=== PATIENT | male | born 1945 | race Caucasian/White ===

== ENCOUNTER → 2017-11-21 | Outpatient (CLI) | payer BC ==
[~2017-11-21] MED LIST: HYDROCHLOROTHIA25 MG PO; LISINOPRIL40 MG PO; TOPROL XL PO
--- NOTE | 2017-11-21 14:19 | Diagnostic Imaging Report ---
PROCEDURE:ABDOMEN-1VIEW (KUB) TECHNIQUE:Supine AP abdomen totaling 2 radiographs are INDICATION:Kidney stones COMPARISON:Patients [facility], DX, ABDOMEN-1VIEW (KUB), 06/04/2017, 11:33. FINDINGS: See conclusion. CONCLUSION: 1. Stable 0.6 cm left inferior pole nephrolithiasis. 2. No additional conspicuous calcifications over the kidneys or ureters. 3. Stable pelvic phleboliths. 4. Normal bowel gas pattern. 5. Degenerative disc disease throughout the thoracolumbar spine. Dictated by: Paresh Singh M.D. on 11/21/2017 at 14:28 Electronically approved by: Paresh Singh M.D. on 11/21/2017 at 14:28
== END ==
LOC: RAD 13:21
PROVIDERS: ATTEND Urology
DX: N20.0 Calculus of kidney (principal)
CPT/HCPCS: 74000

== ENCOUNTER → 2018-03-20 | Outpatient (CLI) | payer BC ==
--- NOTE | 2018-03-20 14:38 | Diagnostic Imaging Report ---
PROCEDURE:X-RAY ABDOMEN - KUB COMPARISON:KUB 11/11/2017. INDICATIONS:RENAL STONE FOLLOW UP. DENIES COMPLAINTS FINDINGS: There is a non-obstructed bowel-gas pattern. There is a 0.5 cm left renal stones unchanged.. There are no acute osseous abnormalities. Degenerative changes in the thoracolumbar spine. The lung bases are clear. CONCLUSION: Stable 0.5 cm left renal stone. Dictated by: Dixon Molina M.D. on 03/20/2018 at 14:39 Electronically approved by: Dixon Molina M.D. on 03/20/2018 at 14:39
== END ==
LOC: RAD 12:44
PROVIDERS: ATTEND Urology
DX: R31.29 Other microscopic hematuria (principal)
CPT/HCPCS: 74018

== ENCOUNTER → 2018-09-18 | Outpatient (CLI) | payer BC ==
--- NOTE | 2018-09-18 13:55 | Diagnostic Imaging Report ---
EXAM: Abdomen 2 Views INDICATION: ^[id number] ^1300 ^HISTORY OF URINARY CALCULUS COMPARISON: KUB 11/02/2016 and 10/19/2016. FINDINGS: Moderate amount of stool in the colon and rectum. No dilated loops of small bowel. Unchanged 6 mm calcified stone overlying the left kidney. Few calcifications in the left pelvis are unchanged and likely representing phleboliths. A 3 mm calcification within the right pelvis is indeterminate and unclear if represents a right distal ureteral stone versus phlebolith but unchanged when compared to 02/18/2016. Right ureteral stent has been removed. No abnormal soft tissue masses. Moderate degenerative changes in the lumbar spine and pelvis. Left lower lobe calcified granuloma. IMPRESSION: 1. Stable 6 mm left renal stone. 2. Interval removal of right ureteral stent. Indeterminate 3 mm calcification in the right pelvis is unchanged and unclear if it represents an ureteral stone versus phlebolith. Signed by: Dr. Urszula Michaels M.D. on 09/18/2018 1:51 PM
== END ==
LOC: RAD 12:37
PROVIDERS: ATTEND Urology
DX: N20.0 Calculus of kidney (principal)
CPT/HCPCS: 74018

== ENCOUNTER → 2019-05-04 | Outpatient (CLI) | payer MEDICARE, BC ==
--- NOTE | 2019-05-04 15:40 | Diagnostic Imaging Report ---
Exam: Abdominal film Clinical History: Kidney stones Comparison: 09/18/2018 DISCUSSION: Previously described 6 mm left upper pole renal calculus is less conspicuous on the current study. No calcifications project over the renal shadows. Unchanged 3 mm right hemipelvic calcification which likely represents a phlebolith. Additional pelvic phleboliths are also noted. Bowel gas pattern is nonobstructive. Degenerative disc changes of the lumbar spine. IMPRESSION: 6 mm left upper pole renal calculus described on the comparison examination is less conspicuous on the current study. Unchanged 3 mm right pelvic calculus, likely a phlebolith. Signed by: Dr. Grant La M.D. on 05/04/2019 3:37 PM
== END ==
LOC: RAD 14:50
PROVIDERS: ATTEND Urology
DX: N20.0 Calculus of kidney (principal)
CPT/HCPCS: 74018

== ENCOUNTER → 2019-05-05 | Outpatient (CLI) | payer MEDICARE, BC ==
--- NOTE | 2019-05-05 16:32 | Diagnostic Imaging Report ---
EXAMINATION: CT of the abdomen and pelvis without contrast. TECHNIQUE: Spiral CT images of the abdomen and pelvis were performed from the lung bases to the lesser trochanters. No intravenous contrast was given per renal stone protocol. Coronal and sagittal reformatted images were obtained. Technique modification was utilized to maintain the lowest dose possible to the patient. DLP: 599.36 mGy-cm COMPARISON: None. CLINICAL HISTORY:History of renal stones DISCUSSION: ABSENCE OF INTRAVENOUS CONTRAST DECREASES SENSITIVITY FOR DETECTION OF FOCAL LESIONS AND VASCULAR PATHOLOGY. ABDOMEN/PELVIS: LOWER THORAX: Left lower lobe and lingular calcified granulomas. There is coronary artery calcification. HEPATOBILIARY:No focal hepatic lesions. No biliary ductal dilation. The gallbladder is normal. SPLEEN: No splenomegaly. PANCREAS: No focal masses or ductal dilatation. ADRENALS: No adrenal nodules. KIDNEYS/URETERS: Multiple cystic lesions involving both kidneys with the largest resident on the left side measuring 3.5 cm. Left upper pole lesion appears to represent a cyst but has high density of 39 Hounsfield units and measures 2.[address] scan renal mass protocol would be of benefit for further renal characterization. No hydronephrosis, calcified renal stones or ureteral stones. PELVIC ORGANS/BLADDER: The bladder is normal. PERITONEUM/RETROPERITONEUM: No free air or fluid. LYMPH NODES: No intra-abdominal,retroperitoneal, pelvic or inguinal lymphadenopathy. VESSELS: There is vascular calcification. GI TRACT: No distention or wall thickening. BONES AND SOFT TISSUES: No bony destructive lesions. Degenerative changes of the spine. No soft tissue abnormalities. IMPRESSION: 1. Multiple lesions within the kidneys likely are all cysts but difficult to evaluate without IV contrast. 2. Renal lesion in the left superior pole is indeterminant. 3. Renal mass protocol CT recommended for further evaluation. Signed by: Dr. Dave Grady DO on 05/05/2019 4:28 PM
== END ==
LOC: CT 12:36
PROVIDERS: ATTEND Urology
DX: N28.9 Disorder of kidney and ureter, unspecified (principal)
CPT/HCPCS: 74176

== ENCOUNTER → 2019-06-05 | Outpatient (CLI) | payer MEDICARE, BC ==
[~2019-06-05] MED LIST changes: +ASPIR 8181 MG PO; +CARVEDILOL12.5 MG PO; +CIALIS PO; +DOXAZOSIN MESYLA2 MG PO; +IOPAMIDOL 370 MG/ML 200 ML INFUS..BTL INJ ONE; +LOSARTAN POTASS50 MG PO; +NIFEDIPINE ER30 M1 PO; +SODIUM CHLORIDE 0.9% 250ML 250 ML ONE
[2019-06-05 12:18] LABS: BLOOD UREA NITROGEN 14 mg/dL (7-26); BUN/CREATININE RATIO 13 (6-25); CREATININE, SERUM 1.06 mg/dL (0.72-1.25); EST GLOMERULAR FILTRATION RATE > 60 ML/MIN (60-)
--- NOTE | 2019-06-05 13:41 | Diagnostic Imaging Report ---
EXAM: CT Abdomen and Pelvis WITH intravenous contrast -hematuria protocol INDICATION: Hematuria, renal mass COMPARISON: None. TECHNIQUE: Abdomen and pelvis were scanned utilizing a multidetector helical scanner from the lung base to the pubic symphysis before and after administration of IV contrast. Coronal and sagittal reformations were obtained. Routine protocol was performed. Scan was performed when before contrast administration and during arterial portal venous and delayed excretory phase. IV CONTRAST: 100 mL of Isovue-370 ORAL CONTRAST: None COMPLICATIONS: None RADIATION DOSE: Total DLP: 1953.1 mGy*cm Dose modulation, iterative reconstruction, and/or weight based adjustment of the mA/kV was utilized to reduce the radiation dose to as low as reasonably achievable. FINDINGS: LOWER THORAX: No focal consolidation at the lung bases. Calcified granulomas in the left upper and left lower lobes. The heart is not enlarged. Scattered athetotic calcifications of the coronary arteries. Small sliding hiatal hernia. HEPATOBILIARY: No focal hepatic lesions. No biliary ductal dilatation. The gallbladder appears unremarkable. SPLEEN: Punctate calcified granulomas in the nonenlarged spleen. PANCREAS: No focal masses or ductal dilatation. ADRENALS: No adrenal nodules. KIDNEYS/URETERS: No hydronephrosis or renal calculi. The previously described bilateral renal cysts are again visualized. None of the cysts on either kidney demonstrate enhancement or other suspicious features. The left upper pole cyst which was indeterminate on the prior noncontrast CT does not enhance and measures approximately 50 Hounsfield units prior to and after contrast administration, likely representing hyperdense cyst. Excretory phase images demonstrate opacification of nearly the entire course of both ureters with no evidence of filling defect or urothelial mass. PELVIC ORGANS/BLADDER: Contrast fills the bladder. There is irregular contrast opacification along the right lateral wall of the inferior aspect of the bladder. There is prostatomegaly to 5.4 cm. PERITONEUM / RETROPERITONEUM: No free air or fluid. LYMPH NODES: No lymphadenopathy. VESSELS: Atherosclerotic calcifications of the nonaneurysmal abdominal aorta and major branches. GI TRACT: No abnormal bowel wall thickening. No bowel obstruction. BONES AND SOFT TISSUES: No acute osseous injury. No suspicious lytic or blastic lesions. Degenerative changes of the lower lumbar spine. IMPRESSION: Previously described bilateral renal cysts, none of which demonstrate enhancement or suspicious features. Specifically, the left upper pole recently indeterminate cyst does not demonstrate enhancement and is consistent with a hyperdense cyst. Irregular contrast opacification along the right lateral wall of the inferior aspect of the bladder. This may be due to image acquisition during ureteral emptying. Prostatomegaly. Coronary artery atherosclerotic calcifications. Signed by: Pauline Blakely MD on 06/05/2019 1:38 PM
== END ==
LOC: CT 11:25
PROVIDERS: ATTEND Urology
DX: R31.29 Other microscopic hematuria (principal); Z87.442 Personal history of urinary calculi
CPT/HCPCS: 36415; 74178; 82565; 84520; J7050; Q9967

== ENCOUNTER → 2019-06-12 | Day surgery (SDC) | payer MEDICARE, BC ==
[~2019-06-12] MED LIST changes: +B&O 60MG R/S 60 MG SUPP PR ONE; +CEFTRIAXONE SOD 1 GM/NS 50 ML 50 ML IV ONE; +DEXAMETHASONE SOD PHOS INJ 4 MG/ML VIAL ONE; +EPHEDRINE SULFATE INJ 50 MG/10 ML SYR ONE; +FENTANYL CITRATE/PF 100MCG/2 ML INJ ONE; -IOPAMIDOL 370 MG/ML 200 ML INFUS..BTL INJ ONE; +IOPAMIDOL 610MG/1ML 300 MG/ML VIAL IV ONE; +LIDOCAINE HCL 2% LOCAL INJ 5 ML SDV VIAL INJ ONE; +ONDANSETRON HCL INJ 2MG/ML 2ML 2 MG/ML VIAL ONE; +PROPOFOL IV EMULSION 10 MG/ML 20 ML VIAL ONE; +SEVOFLURANE INHAL SOLN 250 ML PEN BTL ONE; -SODIUM CHLORIDE 0.9% 250ML 250 ML ONE
--- OUTSIDE RECORDS SUMMARY | 2019-06-12 09:11 | XMS REPORT ---
Author Author [facility] Address Unknown Phone Unavailable Care Team Providers Care [employer] Developer Name Role Phone FRANCES DALEY Unavailable Unavailable Problems This patient has no known problems. Allergies, Adverse Reactions, Alerts This patient has no known allergies or adverse reactions. Medications This patient has no known medications. Results Test Description Test Time Test Comments Text Results Atomic Results Result Comments CT ABDOMEN/PELVIS WOW 2019-06-05 13:22:00 [place] [address] Patient Name: VIRIDIANA LERMA MR #: [id number] : 1945 Age/Sex: 73/M Req #: [id number] [facility] Physician: Ordered by: FRANCES DALEY MD Report #: [id number] Location: CT Room/Bed: Procedure: [id number] CT/CT ABDOMEN/PELVIS WOW Exam Date: 06/05/19 Exam Time: 1245 REPORT STATUS: Signed EXAM: CT Abdomen and Pelvis WITH intravenous contrast -hematuria protocol INDICATION: Hematuria, renal mass COMPARISON: None. TECHNIQUE: Abdomen and pelvis were scanned utilizing a multidetector helical scanner from the lung base to the pubic symphysis before and after administration of IV contrast. Coronal and sagittal reformations were obtained. Routine protocol was performed. Scan was performed when before contrast administration and during arterial portal venous and delayed excretory phase. IV CONTRAST: 100 mL of Isovue-370 ORAL CONTRAST: None COMPLICATIONS: None RADIATION DOSE: Total DLP: 1953.1 mGy*cm Dose modulation, iterative reconstruction, and/or weight based adjustment of the mA/kV was utilized to reduce the radiation dose to as low as reasonably achievable. FINDINGS: LOWER THORAX: No focal consolidation at the lung bases. Calcified granulomas in the left upper and left lower lobes. The heart is not enlarged. Scattered athetotic calcifications of the coronary arteries. Small sliding hiatal hernia. HEPATOBILIARY: No focal hepatic lesions. No biliary ductal dilatation. The gallbladder appears unremarkable. SPLEEN: Punctate calcified granulomas in the nonenlarged spleen. PANCREAS: No focal masses or ductal dilatation. ADRENALS: No adrenal nodules. KIDNEYS/URETERS: No hydronephrosis or renal calculi. The previously described bilateral renal cysts are again visualized. None of the cysts on either kidney demonstrate enhancement or other suspicious features. The left upper pole cyst which was indeterminate on the prior noncontrast CT does not enhance and measures approximately 50 Hounsfield units prior to and after contrast administration, likely representing hyperdense cyst. Excretory phase images demonstrate opacification of nearly the entire course of both ureters with no evidence of filling defect or urothelial mass. PELVIC ORGANS/BLADDER: Contrast fills the bladder. There is irregular contrast opacification along the right lateral wall of the inferior aspect of the bladder. There is prostatomegaly to 5.4 cm. PERITONEUM / RETROPERITONEUM: No free air or fluid. LYMPH NODES: No lymphadenopathy. VESSELS: Atherosclerotic calcifications of the nonaneurysmal abdominal aorta and major branches. GI TRACT: No abnormal bowel wall thickening. No bowel obstruction. BONES AND SOFT TISSUES: No acute osseous injury. No suspicious lytic or blastic lesions. Degenerative changes of the lower lumbar spine. IMPRESSION: Previously described bilateral renal cysts, none of which demonstrate enhancement or suspicious features. Specifically, the left upper pole recently indeterminate cyst does not demonstrate enhancement and is consistent with a hyperdense cyst. Irregular contrast opacification along the right lateral wall of the inferior aspect of the bladder. This may be due to image acquisition during ureteral emptying. Prostatomegaly. Coronary artery atherosclerotic calcifications. Signed by: Leighton Blakely MD on 06/05/2019 1:38 PM Dictated By: LEIGHTON BLAKELY MD [id number] Transcribed By: LATRELL on 06/05/19 1338 COPY TO: FRANCES DALEY MD CT ABDOMEN/PELVIS WO 2019-05-05 16:16:00 [place] [address] Patient Name: VIRIDIANA LERMA MR #: [id number] : 1945 Age/Sex: 73/M Req #: [id number] Adm Physician: Ordered by: FRANCES DALEY MD Report #: [id number] Location: CT Room/Bed: Procedure: [id number] CT/CT ABDOMEN/PELVIS WO Exam Date: 05/05/19 Exam Time: 1310 REPORT STATUS: Signed EXAMINATION: CT of the abdomen and pelvis without contrast. TECHNIQUE: Spiral CT images of the abdomen and pelvis were performed from the lung bases to the lesser trochanters. No intravenous contrast was given per renal stone protocol. Coronal and sagittal reformatted images were obtained. Technique modification was utilized to maintain the lowest dose possible to the patient. DLP: 599.36 mGy-cm COMPARISON: None. CLINICAL HISTORY:History of renal stones DISCUSSION: ABSENCE OF INTRAVENOUS CONTRAST DECREASES SENSITIVITY FOR DETECTION OF FOCAL LESIONS AND VASCULAR PATHOLOGY. ABDOMEN/PELVIS: LOWER THORAX: Left lower lobe and lingular calcified granulomas. There is coronary artery calcification. HEPATOBILIARY:No focal hepatic lesions. No biliary ductal dilation. The gallbladder is normal. SPLEEN: No splenomegaly. PANCREAS: No focal masses or ductal dilatation. ADRENALS: No adrenal nodules. KIDNEYS/URETERS: Multiple cystic lesions involving both kidneys with the largest resident on the left side measuring 3.5 cm. Left upper pole lesion appears to represent a cyst but has high density of 39 Hounsfield units and measures 2.[address] scan renal mass protocol would be of benefit for further renal characterization. No hydronephrosis, calcified renal stones or ureteral stones. PELVIC ORGANS/BLADDER: The bladder is normal. PERITONEUM/RETROPERITONEUM: No free air or fluid. LYMPH NODES: No intra- abdominal,retroperitoneal, pelvic or inguinal lymphadenopathy. VESSELS: There is vascular calcification. GI TRACT: No distention or wall thickenin g. BONES AND SOFT TISSUES: No bony destructive lesions. Degenerative changes of the spine. No soft tissue abnormalities. IMPRESSION: 1. Multiple lesions within the kidneys likely are all cysts but difficult to evaluate without IV contrast. 2. Renal lesion in the left superior pole is indeterminant. 3. Renal mass protocol CT recommended for further evaluation. Signed by: Dr. Jeferson Grady DO on 05/05/2019 4:28 PM Dictated By: JEFERSON GRADY DO 27 Transcribed By: LATRELL on 05/05/191627 COPY TO: FRANCES DALEY MD ABDOMEN-1VIEW (KUB) 2019-05-04 15:34:00 [place] [address] Patient Name: VIRIDIANA LERMA MR #: [id number] : 1945 Age/Sex: 73/M Req #: [id number] Adm Physician: Ordered by: FRANCES DALEY MD Report #: [id number] Location: [facility] Room/Bed: Procedure: [id number] DX/ABDOMEN-1VIEW (KUB) Exam Date: 05/04/19 Exam Time: 1515 REPORT STATUS: Signed Exam: Abdominal film Clinical History: Kidney stones Comparison: 09/18/2018 DISCUSSION: Previously described 6 mm left upper pole renal calculus is less conspicuous on the current study. No calcifications project over the renal shadows. Unchanged 3 mm right hemipelvic calcification which likely represents a phlebolith. Additional pelvic phleboliths are also noted. Bowel gas pattern is nonobstructive. Degenerative disc changes of the lumbar spine. IMPRESSION: 6 mm left upper pole renal calculus described on the comparison examination is less conspicuous on the current study. Unchanged 3 mm right pelvic calculus, likely a phlebolith. Signed by: Dr. Raymundo Mueller M.D. on 05/04/2019 3:37 PM Dictated By: RAYMUNDO MUELLER MD 36 Transcribed By: LATRELL on 05/04/191536 COPY TO: FRANCES DALEY MD ABDOMEN-1VIEW (KUB) 2018-09-18 13:48:00 [place] [address] Patient Name: VIRIDIANA LERMA MR #: [id number] : 1945 Age/Sex: 72/M Req #: [id number] Adm Physician: Ordered by: FRANCES DALEY MD Report #: [id number] Location: [facility] Room/Bed: Procedure: [id number] DX/ABDOMEN-1VIEW (KUB) Exam Date: 09/18/18 Exam Time: 1300 REPORT STATUS: Signed EXAM: Abdomen 2 Views INDICATION: [id number] HISTORY OF URINARY CALCULUS COMPARISON: KUB 11/02/2016 and 10/19/2016. FINDINGS: Moderate amount of stool in the colon and rectum. No dilated loops of small bowel. Unchanged 6 mm calcified stone overlying the left kidney. Few calcifications in the left pelvis are unchanged and likely representing phleboliths. A 3 mm calcification within the right pelvis is indeterminate and unclear if represents a right distal ureteral stone versus phlebolith but unchanged when compared to 12 02/18/2016. Right ureteral stent has been removed. No abnormal soft tissue masses. Moderate degenerative changes in the lumbar spine and pelvis. Left lower lobe calcified granuloma. IMPRESSION: 1. Stable 6 mm left renal stone. 2. Interval removal of right ureteral stent. Indeterminate 3 mm calcification in the right pelvis is unchanged and unclear if it represents an ureteral stone versus phlebolith. Signed by: Dr. Sejal Gomez M.D. on 09/18/2018 1:51 PM Dictated By: SEJAL GOMEZ MD 1351 Transcribed By: LATRELL on 09/18/18 1351 COPY TO: FRANCES DALEY MD ABDOMEN-1VIEW (KUB) [place] [address] Patient Name: VIRIDIANA LERMA MR #: [id number] : 1945 Age/Sex: 72/M Req #: [id number] Adm Physician: Ordered by: FRANCES DALEY MD Report #: [id number] Location: [facility] Room/Bed: Procedure: [id number] DX/ABDOMEN-1VIEW (KUB) Exam Date: 03/20/18 Exam Time: 1315 REPORT STATUS: Signed PROCEDURE: X-RAY ABDOMEN - KUB COMPARISON: KUB 11/11/2017. INDICATIONS: RENAL STONE FOLLOW UP. DENIES COMPLAINTS FINDINGS: There is a non-obstructed bowel-gas pattern. There is a 0.5 cm left renal stones unchanged.. There are no acute osseous abnormalities. Degenerative changes in the thoracolumbar spine. The lung bases are clear. CONCLUSION: Stable 0.5 cm left renal stone. Dictated by: Sarah Velazquez M.D. on 03/20/2018 at 14:39 Electronically approved by: Sarah Velazquez M.D. on 03/20/2018 at 14:39 Dictated By: SARAH VELAZQUEZ MD 1439 Transcribed By: MATIAS on 03/20/18 1439 COPY TO: FRANCES DALEY MD ABDOMEN-1VIEW (KUB) [place] [address] Patient Name: VIRIDIANA LERMA MR #: [id number] : 1945 Age/Sex: 71/M Req #: [id number] Adm Physician: Ordered by: FRANCES DALEY MD Report #: [id number] Location: [facility] Room/Bed: Procedure: [id number] DX/ABDOMEN-1VIEW (KUB) Exam Date: 11/21/17 Exam Time: 1357 REPORT STATUS: Signed PROCEDURE: ABDOMEN-1VIEW (KUB) TECHNIQUE: Supine AP abdomen totaling 2 radiographs are INDICATION: Kidney stones COMPARISON: [facility], DX, ABDOMEN-1VIEW (KUB), 06/04/2017, 11:33. FINDINGS: See conclusion. CONCLUSION: 1. Stable 0.6 cm left inferior pole nephrolithiasis. 2. No additional conspicuous calcifications over the kidneys or ureters. 3. Stable pelvic phleboliths. 4. Normal bowel gas pattern. 5. Degenerative disc disease throughout the thoracolumbar spine. Dictated by: Keegan Singh M.D. on 11/21/2017 at 14:28 Electronically approved by: Keegan Singh M.D. on 11/21/2017 at 14:28 Dictated By: KEEGAN SINGH MD 1428 Transcribed By: MATIAS on 11/21/17 1428 COPY TO: FRANCES DALEY MD
[2019-06-12 10:17] LABS: BASOPHILS % 0.6 % (0.0-1.0); EOSINOPHILS # (AUTO) 0.4 (0.0-0.4); EOSINOPHILS % 5.7 % (0.0-6.0); HEMATOCRIT 44.2 % (38.2-49.6); HEMOGLOBIN 16.1 g/dL (14.0-18.0); LYMPHOCYTES # (AUTO) 1.5 (1.0-3.2); MEAN CORPUSCULAR HEMOGLOBIN 32.3 pg (28-32); MEAN CORPUSCULAR HGB CONC 36.4 g/dL (31-35); MEAN CORPUSCULAR VOLUME 88.6 fL (81-99); MONOCYTES # (AUTO) 0.5 (0.2-0.8); MONOCYTES % 8.1 % (4.4-11.3); NEUTROPHILS # (AUTO) 3.9 (2.1-6.9); NEUTROPHILS % 62.4 % (38.7-80.0); PLATELET COUNT 219 x10e3/uL (140-360); RED BLOOD COUNT 4.99 x10e6/uL (4.3-5.7); RED CELL DISTRIBUTION WIDTH 12.3 % (11.7-14.4)
--- NOTE | 2019-06-12 10:53 | Diagnostic Imaging Report ---
EXAMINATION: CHEST 2 VIEWS INDICATION: Pre-operative COMPARISON: None FINDINGS: LINES/TUBES:None LUNGS:The lungs are well-inflated. No focal consolidation or pulmonary edema. Left lung base calcified granulomas. PLEURA:No pleural effusion or pneumothorax. MEDIASTINUM:The cardiomediastinal silhouette appears normal in size and shape. BONES/SOFT TISSUES:No acute osseous injury. ABDOMEN:No free air under the diaphragm. IMPRESSION: No focal pneumonia or pulmonary edema. Signed by: Pauline Blakely MD on 06/12/2019 10:49 AM
[2019-06-12 12:15] VITALS: BP 125/85
--- NOTE | 2019-08-07 05:09 | Operative Report ---
DATE OF PROCEDURE: 06/12/2019 SURGEON: Gopi Galicia MD PREOPERATIVE DIAGNOSES: 1. History of urolithiasis. 2. Microscopic hematuria. 3. Gross hematuria. POSTOPERATIVE DIAGNOSES: 1. History of urolithiasis. 2. Microscopic hematuria. 3. Gross hematuria. OPERATION PERFORMED: 1. Cystourethroscopy with bilateral ureteral catheterization and retrograde ureteropyelography. 2. Interpretation of retrograde ureteropyelography. ANESTHESIA: General. COMPLICATIONS: None. CLINICAL SUMMARY: Awilda Potter is a 73-year-old man with history of urolithiasis and hematuria. The patient was found to have an irregular right bladder wall on CT. He is brought for evaluation. He is aware of the risks of bleeding, infection, injury to adjacent structures, need for additional procedures, and elected to proceed. OPERATIVE PROCEDURE IN DETAIL: Informed consent was verified. Awilda Potter was properly identified, taken to the operating room, and placed on the cystoscopy table in supine position. Anesthesia was uneventfully begun. The patient was then carefully gently repositioned in the dorsal lithotomy position with all pressure points well padded. His genitalia were prepared and draped in usual sterile fashion. The cystoscope sheath with the visual obturator in place was atraumatically inserted into the patient's urethra, was guided down the unremarkable urethra through the normal sphincteric region, through the prostate bed, which was significant for visually obstructing BPH and into the patient's bladder. Grade 1 trabeculations were noted, but there were no tumors, there were no stones, and there was no diverticula. There was no evidence of any suspicious lesion in the bladder including in the region that was mentioned on CT. An 8-Lithuanian catheter was used to cannulate each ureter and retrograde ureteropyelograms were performed. Interpretation of retrograde ureteropyelography contrast was instilled in retrograde fashion bilaterally. There were no tumors, no stones, and no diverticula. Unobstructed drainage was observed bilaterally fluoroscopically. The patient's bladder was drained. Cystoscope was withdrawn. A belladonna and opium suppository were placed revealing a large smooth prostate, that is nonfunctional without any nodules. The patient was then uneventfully reversed from anesthesia and taken to recovery room in stable condition. Explicit postop instructions were given and follow the patient up in the office in approximately three months. Gopi MD ELICEO Galicia /[id number]
== END | disposition home or self-care (01) ==
LOC: OR 09:08
PROVIDERS: ATTEND Urology
DX: R31.0 Gross hematuria (principal); Z87.442 Personal history of urinary calculi; N40.0 Benign prostatic hyperplasia without lower urinary tract symptoms; N13.8 Other obstructive and reflux uropathy; N32.89 Other specified disorders of bladder; I10 Essential (primary) hypertension; F03.90 Unspecified dementia, unspecified severity, without behavioral disturbance, psychotic disturbance, mood disturbance, and anxiety; Z86.73 Personal history of transient ischemic attack (TIA), and cerebral infarction without residual deficits
CPT/HCPCS: 36415; 52005; 71046; 74420; 85025; 93005; C1758; J0696; J1100; J2001; J2405; J2704; J3010; Q9967

== ENCOUNTER → 2021-11-08 | Outpatient (CLI) | payer MEDICARE, BC ==
[~2021-11-08] MED LIST changes: -B&O 60MG R/S 60 MG SUPP PR ONE; -CEFTRIAXONE SOD 1 GM/NS 50 ML 50 ML IV ONE; -DEXAMETHASONE SOD PHOS INJ 4 MG/ML VIAL ONE; -EPHEDRINE SULFATE INJ 50 MG/10 ML SYR ONE; -FENTANYL CITRATE/PF 100MCG/2 ML INJ ONE; -IOPAMIDOL 610MG/1ML 300 MG/ML VIAL IV ONE; -LIDOCAINE HCL 2% LOCAL INJ 5 ML SDV VIAL INJ ONE; -ONDANSETRON HCL INJ 2MG/ML 2ML 2 MG/ML VIAL ONE; -PROPOFOL IV EMULSION 10 MG/ML 20 ML VIAL ONE; -SEVOFLURANE INHAL SOLN 250 ML PEN BTL ONE
== END ==
LOC: RAD 16:37
PROVIDERS: ATTEND Urology
DX: N20.0 Calculus of kidney (principal)
CPT/HCPCS: 74018